=== PATIENT | female | born 1985 | race Caucasian/White ===

== ENCOUNTER → 2022-10-30 | Outpatient (CLI) | payer BC, OTHER ==
[2022-10-30 12:10] LABS: HEMATOCRIT 39.6 % (36.0-47.0); HEMOGLOBIN 12.6 g/dl (12.0-15.5); MEAN CORPUSCULAR HEMOGLOBIN 27.4 pg (27.0-33.0); MEAN CORPUSCULAR HGB CONC 31.8 g/dl (32.0-36.5); MEAN CORPUSCULAR VOLUME 86.1 fl (80.0-96.0); PLATELET COUNT, AUTOMATED 300 10^3/uL (150-450); WHITE BLOOD COUNT 9.4 10^3/uL (4.0-10.0)
[2022-10-30 12:30] LABS: HCG, SERUM QUANTITATIVE < 2.6 MIU/ML (<4.2)
[2022-10-30 12:34] LABS: ALBUMIN 3.4 G/DL (3.2-5.2); ALKALINE PHOSPHATASE 104 U/L (46-116); ALT/SGPT 14 U/L (7.0-40); AST/SGOT < 8 U/L (<34); BILIRUBIN,TOTAL 0.3 MG/DL (0.3-1.2); BLOOD UREA NITROGEN 9 MG/DL (9-23); CALCIUM LEVEL 8.8 MG/DL (8.5-10.1); CARBON DIOXIDE LEVEL 26 MMOL/L (20-31); CHLORIDE LEVEL 109 MMOL/L (98-107); CREATININE FOR GFR 0.65 MG/DL (0.55-1.30); GLOMERULAR FILTRATION RATE > 60.0 (>60); GLUCOSE, FASTING 99 MG/DL (60-100); POTASSIUM SERUM 4.4 MMOL/L (3.5-5.1); SODIUM LEVEL 144 MMOL/L (136-145); THYROID STIMULATING HORMONE 2.842 uIU/ML (0.55-4.78); TOTAL PROTEIN 6.4 G/DL (5.7-8.2)
[2022-10-30 12:35] LABS: ESTRADIOL 39.3 PG/ML; LUTEINIZING HORMONE 4.8 mIU/ML; PROLACTIN 10.05 NG/ML; TOTAL 25(OH) VITAMIN D 23.8 NG/ML (20.0-100.0)
[2022-10-30 12:36] LABS: TESTOSTERONE 36 NG/DL (14-76)
[2022-10-30 12:37] LABS: PROGESTERONE 0.49 NG/ML
[2022-10-30 12:37] LABS: HEMOGLOBIN A1c 5.5 % (4.0-6.0)
[2022-10-30 12:59] LABS: HIV 1&2 SCREEN NEGATIVE (NEGATIVE)
[2022-10-30 13:06] LABS: HEPATITIS C VIRUS ABY INDEX 0.11 INDEX (<0.8)
== END ==
LOC: M LAB 11:31
PROVIDERS: ATTEND Obstetrics & Gynecology Reproductive Endocrinology
DX: Z31.41 Encounter for fertility testing (principal)

== ENCOUNTER → 2023-04-12 | Outpatient (CLI) | payer SELFPAY ==
[2023-04-12 18:32] LABS: HCG, SERUM QUANTITATIVE < 2.6 MIU/ML (<4.2)
[2023-04-12 18:36] LABS: PROGESTERONE 1.86 NG/ML
== END ==
LOC: M LAB 16:49
PROVIDERS: ATTEND Obstetrics & Gynecology Reproductive Endocrinology
DX: Z32.00 Encounter for pregnancy test, result unknown (principal)

== ENCOUNTER 2023-06-28 16:21 | Emergency (ER) | payer BC, SELFPAY ==
[~2023-06-28] VITALS: Ht 160 cm; Wt 137.9 kg
[2023-06-28] MEDS ORDERED: ACET-683 PO (16:44)
[2023-06-28] MEDS ORDERED: BENG1CRE TOP (16:44)
[2023-06-28] MEDS ORDERED: IBUP1TAB7 PO (16:44)
[2023-06-28] MEDS: KETOROLAC 60MG 2ML VIAL IM ONE (20:38)
[2023-06-28 21:17] LABS: RSV AMPLIFICATION NEGATIVE (NEGATIVE)
[2023-06-28] MEDS ORDERED: LIDO5DIS41 TD (21:35)
[2023-06-28] MEDS ORDERED: CYCL-707 PO (21:35)
[2023-06-28 21:37] VITALS: BP 122/78; TEMP 98.1; O2SAT 98
[2023-06-28] MEDS: CYCLOBENZAPRINE 5MG TABLET PO ONE (21:41)
[2023-06-28] MEDS: LIDOCAINE 5% (LIDODERM) PATCH TD ONE (21:42)
== END 2023-06-28 22:06 | disposition home or self-care (01) ==
LOC: M ED 16:21
DX: S16.1XXA Strain of muscle, fascia and tendon at neck level, initial encounter (principal); X50.0XXA Overexertion from strenuous movement or load, initial encounter; M51.26 Other intervertebral disc displacement, lumbar region; Z79.891 Long term (current) use of opiate analgesic; Z79.899 Other long term (current) drug therapy; Y92.009 Unspecified place in unspecified non-institutional (private) residence as the place of occurrence of the external cause; Y93.9 Activity, unspecified; Y99.9 Unspecified external cause status
CPT/HCPCS: 87631; 96372; 99283; J1885

== ENCOUNTER → 2023-11-08 | Outpatient (REF) ==
[~2023-11-08] MED LIST: ACET-683 PO; BENG1CRE TOP; CYCL-707 PO; IBUP1TAB7 PO; LIDO5DIS41 TD
== END ==
LOC: M EMP 11:54
PROVIDERS: ATTEND Family Medicine
DX: Z11.52 Encounter for screening for COVID-19 (principal)

== ENCOUNTER → 2024-06-25 | Outpatient (REF) | payer BC ==
[2024-06-25 16:10] LABS: HEMATOCRIT 41.3 % (36.0-47.0); HEMOGLOBIN 13.1 g/dl (12.0-15.5); MEAN CORPUSCULAR HEMOGLOBIN 27.6 pg (27.0-33.0); MEAN CORPUSCULAR HGB CONC 31.7 g/dl (32.0-36.5); MEAN CORPUSCULAR VOLUME 87.1 fl (80.0-96.0); PLATELET COUNT, AUTOMATED 287 10^3/uL (150-450); RED BLOOD COUNT 4.74 10^6/uL (4.00-5.40); WHITE BLOOD COUNT 7.3 10^3/uL (4.0-10.0)
[2024-06-25 16:18] LABS: PROLACTIN 12.81 NG/ML
[2024-06-25 16:24] LABS: ALBUMIN 3.4 G/DL (3.2-5.2); ALKALINE PHOSPHATASE 108 U/L (35-104); ALT/SGPT 18 U/L (7.0-40); AST/SGOT 11 U/L (<34); BILIRUBIN,TOTAL 0.5 MG/DL (0.3-1.2); BLOOD UREA NITROGEN 8 MG/DL (9-23); CALCIUM LEVEL 8.9 MG/DL (8.5-10.1); CARBON DIOXIDE LEVEL 24 MMOL/L (20-31); CHLORIDE LEVEL 107 MMOL/L (98-107); CHOLESTEROL LEVEL 186 MG/DL (<200); CHOLESTEROL RISK RATIO 5.53 (<5); CREATININE FOR GFR 0.69 MG/DL (0.55-1.30); GLOMERULAR FILTRATION RATE > 60.0 (>60); GLUCOSE, FASTING 81 MG/DL (60-100); HDL CHOLESTEROL 33.6 MG/DL (>40); MAGNESIUM LEVEL 1.8 MG/DL (1.8-2.4); NON-HDL-C 152.4 MG/DL; POTASSIUM SERUM 4.2 MMOL/L (3.5-5.1); SODIUM LEVEL 139 MMOL/L (136-145); TOTAL PROTEIN 6.9 G/DL (5.7-8.2); TRIGLYCERIDES LEVEL 102 MG/DL (<150)
[2024-06-25 16:37] LABS: HEMOGLOBIN A1c 5.3 % (4.0-6.0)
== END ==
LOC: M SFHCPLAZ 11:39
PROVIDERS: ATTEND Family Medicine
DX: K76.0 Fatty (change of) liver, not elsewhere classified (principal); E78.5 Hyperlipidemia, unspecified; R25.2 Cramp and spasm; N64.3 Galactorrhea not associated with childbirth